=== PATIENT | male | born 1960 | race Caucasian/White ===

== ENCOUNTER → 2018-02-07 08:31 | Day surgery (SDC) | payer BC ==
[~2018-02-07 08:31] MED LIST: Acetaminophen IV 1GM/100ML * 1,000 MG/100 ML VIAL IVPB ONE; Buffered Lidocaine 0.9% SYRIN* 5 ML/SYR SYRINGE INTRADERM ONE; Bupivacaine 0.5%* 50 ML VIAL ONE; Dexamethasone IV* 4 MG/ML 1 ML (4 MG) IV SLOW PU ONE; Dexamethasone IV* 4 MG/ML 1 ML (4 MG) ONE; DiMENhydriNATE IV* 50 MG/ML VIAL IV PUSH PRN; EPHEDrine (Pressors)* 50 MG/ML VIAL ONE; Famotidine IV* 10 MG/ML 2 ML (20 mg) IV ONE; Famotidine IV* 10 MG/ML 2 ML (20 mg) ONE; Glycopyrrolate IV* 0.2 MG/ML 1 ML VIAL ONE; HYDROmorphone INJ1* 1 MG/ML SYRINGE IV PRN; HYDROmorphone INJ1* 1 MG/ML SYRINGE ONE; KETAMINE HCL* 50 MG/ML 10 ML VIAL ONE; Ketorolac INJ* 30 MG/ML 1 ML VIAL IV PRN; Lactated Ringers 1000 ML Bag* 1,000 ML IV SCH; Lidocaine 2% (CARDIAC)* 20 MG/ML 5 ML SYRINGE (100 MG) ONE; Lidocaine 2% PF * 5 ML VIAL ONE; Lidocaine 2% PF* 10 ML AMP ONE; Midazolam* 1 MG/ML 2 ML VIAL (2 MG) ONE; Naloxone* 0.4 MG/ML 1 ML VIAL IV PRN; Neostigmine Methylsulfate* 1 MG/ML 10 ML VIAL (1 mg/ml) ONE; Ondansetron INJ* 2 MG/ML VIAL ONE; PROCHLORPERAZINE INJ 5 MG/ML 2 ML VIAL IV PRN; Phenylephrine INJ* 10 MG/ML 1 ML VIAL (10 MG) ONE; Propofol* 10 MG/ML 20 ML BTL ONE; Rocuronium* 10 MG/ML VIAL ONE; Succinylcholine* 20 MG/ML 10 ML VIAL ONE; ceFAZolin 1 GM ADVAN(*) 1 GM ADDV.VIAL IVPB ONE; ceFAZolin 2 GM PREMIX in ORs 2 GM/50 ML BAG IVPB ONE; fentaNYL* 50 MCG/ML 2 ML VIAL (100 MCG VIAL) IV PRN; fentaNYL* 50 MCG/ML 2 ML VIAL (100 MCG VIAL) ONE; oxyCODONE TAB* 5 MG TAB PO PRN
[2018-02-07 16:05] VITALS: BP 134/82
--- NOTE | 2018-02-08 02:12 | OP ---
DATE OF OPERATION: 02/07/18 - [facility] DATE OF : 56 SURGEON: Edgardo Damon MD [employer] FABRICATOR: ANTON He PRE-OP DIAGNOSIS: Chronic exertional tendinosis, left Achilles. POST-OP DIAGNOSIS: Chronic exertional tendinosis, left Achilles. OPERATIVE PROCEDURE: Advancement of left Achilles with posterior calcanectomy. DESCRIPTION OF PROCEDURE: The patient was taken to the operating room where a longitudinal incision was made more or less midline, slightly medial to the Achilles. We incised around the base of the Achilles near the large posterior spur that reflected the Achilles proximally. The spur itself as well as the posterior bursa was removed with a microsagittal saw to provide a good cancellous reattachment of the tendon. We debrided the end of the tendon where there was some fibrous and calcified debris and proximally a V-Y advancement was performed with each limb approximately 4 to 5 cm in length. We reattached the Achilles then at the posterior calcaneus using the [employer]- Tenodesis insertion system with cross FiberWire. Good attachment was obtained. We then irrigated thoroughly closing with 2-0 Vicryl and a combination of frank and Prolene and a compression dressing plaster splint. [id number]/[facility] #: [id number] [facility]ITALSharmin
== END | disposition home or self-care (01) ==
LOC: OR 08:31
PROVIDERS: ATTEND Orthopaedic Surgery
DX: M76.62 Achilles tendinitis, left leg (principal); M77.32 Calcaneal spur, left foot; G47.33 Obstructive sleep apnea (adult) (pediatric); Z87.891 Personal history of nicotine dependence
CPT/HCPCS: C1713; J0330; J0690; J1100; J1170; J2001; J2250; J2405; J2704; J2710; J3010